=== PATIENT | male | born 1970 | race Hispanic/Latino ===

== ENCOUNTER 2019-08-13 13:59 | Outpatient (CLI) | payer OTHER ==
--- NOTE | 2019-08-13 21:12 | RAD ---
RIGHT KNEE TWO VIEWS: 08/13/19 There is some minor medial joint space narrowing and very minimal osteophytes medially. No fracture o r dislocation was seen. Some tiny patellofemoral osteophytes are present. There is probably a small j oint effusion. IMPRESSION: 1. Very mild degenerative change. 2. Probable small joint effusion. POS: HOME
--- NOTE | 2019-08-13 21:13 | RAD ---
LEFT KNEE TWO VIEWS: 08/13/19 Comparison is made with the right knee. The findings are quite similar. Very minor medial joint space narrowing and tiny osteophytes are present, as well as involvement of the patellofemoral joint. If a ny joint fluid is present, it is relatively small. No fracture was seen. IMPRESSION: Mild degenerative change. POS: HOME
== END 2019-08-13 14:00 | disposition home or self-care (01) ==
LOC: BURRAD 13:59
DX: M25.561 Pain in right knee (principal); M17.0 Bilateral primary osteoarthritis of knee